=== PATIENT | female | born 1980 | race African-American/Black ===

== ENCOUNTER 2016-05-09 16:02 | Emergency (ER) | payer OTHER ==
[~2016-05-09 16:02] MED LIST: ENDOCET1 TAB PO; PYR100B PO
== END 2016-05-09 16:30 | disposition home or self-care (01) ==
LOC: ER 16:02
DX: B34.9 Viral infection, unspecified (principal); J02.9 Acute pharyngitis, unspecified; K21.9 Gastro-esophageal reflux disease without esophagitis; F32.9 Major depressive disorder, single episode, unspecified; Z88.1 Allergy status to other antibiotic agents
CPT/HCPCS: 87070; 87880; 99284; A9270-GY